=== PATIENT | female | born 1985 | race Caucasian/White ===

== ENCOUNTER 2019-02-08 15:56 | Outpatient (REF) | payer MEDICAID, SELFPAY ==
--- NOTE | 2019-02-08 15:00 | PAPFT_PTH ---
PATIENT: Mehul Fortune LOC: NCN #:[id number] AGE/SX: 33/F ROOM: RE02/08/[address]: Xenia Diaz : 1985 BED: DIS: 02/08/2019 SPEC #: [id number] RECD: 02/09/19 12:56 STATUS: CLYDE KINNEY #: [id number] MARTÍNEZ: 02/08/19 15:[address]: Xenia Diaz DEPT: [facility] Cytology RECD BY: Shalini Harris Tissues: 1 - CX/ENDOCX FOR PAP SMEARS Procedures: PAP THIN PREP/UVM Screening HPV DNA PROBE Comments: [id number] (CHLAMYDIA/GC)
[2019-02-08 22:02] LABS: Absolute Basophil Count 0.05 k/cumm (0.0-0.2); Absolute Eosinophil Count 0.12 k/cumm (0.0-0.7); Absolute Lymphocyte Count 1.86 k/cumm (1.2-3.4); Absolute Monocyte Count 0.28 k/cumm (0.11-0.7); Basophils % 0.8; Eosinophils % 1.9; HCT 40.5 % (36.0-46.0); HGB 13.8 g/dL (12.0-15.5); Lymphocytes % 29.5; Mean Corp. HGB Concentration 34.1 g/dL (32.0-36.0); Mean Corpuscular Hemoglobin 30.3 pg (27.0-33.0); Mean Corpuscular Volume 88.8 fL (80-95); Monocytes % 4.4; Neutrophils % 63.4; Platelet Count 319 x1000/uL (130-400); RBC 4.56 m/cumm (4.00-5.20); RBC Distribution Width 12.6 % (11.7-14.6); White Blood Cell Count 6.31 k/cumm (4.4-10.8)
[2019-02-08 22:35] LABS: Hemoglobin A1C 5.4 % (4.5-6.2)
[2019-02-08 22:55] LABS: ALT 29 U/L (14-59); AST 19 U/L (15-37); Albumin 3.8 g/dL (3.4-5.0); Alkaline Phosphatase 97 U/L (46-116); Anion Gap 11.7 mmol/L (3-11); BUN 9 mg/dL (7-18); Bilirubin, Total 0.3 mg/dL (0.2-1.0); CO2 23.3 mmol/L (21.0-32.0); CREATININE 0.88 mg/dL (0.55-1.02); Calcium 8.9 mg/dL (8.5-10.1); Calculated LDL 100 mg/dL; Chloride 105 mmol/L (98-107); Cholesterol 183 mg/dL (50-200); Glucose 95 mg/dL (70-100); HDL Cholesterol 30 mg/dL (40-60); Magnesium 1.8 mg/dL (1.8-2.4); Sodium 140 mmol/L (136-145); TSH (W/Ref FT4) 2.25 uIU/mL (0.36-3.74); Total Protein 6.9 g/dL (6.4-8.2); Triglyceride 267 mg/dL (30-150); Vitamin B12 598 pg/mL (193-986)
[2019-02-08 23:09] LABS: Iron 63 ug/dL (50-175); Total Iron Binding Capacity 290 ug/dL (250-450); Transferrin Sat 22 % (15-50)
[2019-02-10 10:18] LABS: Syphilis Serology (RPR) Negative (Negative)
[2019-02-10 11:26] LABS: HIV-1/2 Ag & Ab Screen Negative (NEGAT)
[2019-02-10 15:28] LABS: Chlamydia Result Negative; GC Result Negative; Specimen Description SEE COMMENTS
== END 2019-02-08 16:16 ==
LOC: NCHCN 15:56
PROVIDERS: PCP Nurse Practitioner Family; Visit Provider Nurse Practitioner Family
DX: R53.83 Other fatigue (principal); F41.9 Anxiety disorder, unspecified; R19.7 Diarrhea, unspecified; R51 Headache; K30 Functional dyspepsia; E66.9 Obesity, unspecified; Z12.4 Encounter for screening for malignant neoplasm of cervix; Z11.3 Encounter for screening for infections with a predominantly sexual mode of transmission; Z11.51 Encounter for screening for human papillomavirus (HPV); R06.83 Snoring
CPT/HCPCS: 80053; 80061; 87389; 87491; 87591; 88142; 82607; 83036; 83540; 83550; 83735; 84443; 85025; 86592; 87624

== ENCOUNTER 2019-07-05 13:37 | Emergency (ER) | payer MEDICAID, SELFPAY ==
[2019-07-05] VITALS (14 sets, daily range): BP systolic 101–115; BP diastolic 57–77; PULSE 53–68; RESP 14–22; TEMP 36.7–36.9; O2SAT 96–99
--- NOTE | 2019-07-05 13:58 | W.ED.GENAD ---
Discharge Plan Disposition Patient Disposition: HOME Condition: Stable Discharge Details Chief Complaint: Headache Clinical Impression: Headache, Post concussion syndrome, Anxiety Primary Care Provider: Xenia Diaz ED Provider: Jef Edmonds Home Meds and New Rx's Prescriptions: Continued meclizine 25 mg tablet 25 mg PO TID RF: 0 ondansetron HCl 4 mg tablet 4 mg PO ONCE PRNRF: 0 omeprazole 40 mg capsule,delayed release(DR/EC) 40 mg PO HS RF: 0 citalopram 40 mg tablet 40 mg PO HS RF: 0 hydroxyzine HCl 50 mg tablet 50 mg PO TID PRNRF: 0 loratadine [Claritin RediTabs] 10 mg tablet,disintegrating 10 mg PO HS RF: 0 fluticasone propionate [Allergy Relief (fluticasone)] 50 mcg/actuation spray,suspension 1 spray VICENTE DAILY RF: 0 gabapentin 300 mg capsule 300 mg PO TID RF: 0 Discharge Instructions Instructions: General Headache (ED) Additional Instructions: Please take ibuprofen over the counter. Take 600mg by mouth every 6 hours as needed for pain. Please contact your primary care physician to arrange follow-up. Return to the ER for any worsening or new concerning symptoms. Referrals: Xenia Diaz [Primary Care Provider] - Medical Decision Making 33-year-old female with recent concussion and postconcussive syndrome, seen by neurology last month, here with moderate headache and stuttering speech today with associated nausea and vomiting. Patient was given Zofran by EMS. Patient is neurologically intact. Stuttering still present and varying between part word repetition, 1 word repetition, prolonged sounds. Patient is afebrile with no nuchal rigidity. CT head was interpreted by radiology: IMPRESSION: No acute intracranial process. No vomiting here in the emergency family patient tolerating oral intake. Patient reassessed and has remained stable. She remains neurologically intact. Stutter is improved I suspect anxiety is contributing to her current presentation. Patient was given ibuprofen for headache. Plan will be for outpatient follow-up with her primary care physician. HPI General Date/Time Provider Initiated Documentation: 07/05/19 13:43. Related Data Home Medications Medication Instructions Recorded Confirmed citalopram 40 mg tablet 40 mg PO HS 02/15/19 07/05/19 fluticasone propionate 50 1 spray VICENTE DAILY 02/15/19 07/05/19 mcg/actuation nasal spray,suspension hydroxyzine HCl 50 mg tablet 50 mg PO TID PRN 02/15/19 07/05/19 loratadine 10 mg disintegrating 10 mg PO HS 02/15/19 07/05/19 tablet omeprazole 40 mg capsule,delayed 40 mg PO HS 02/15/19 07/05/19 release gabapentin 300 mg capsule 300 mg PO TID cap 05/18/19 07/05/19 meclizine 25 mg tablet 25 mg PO TID 05/18/19 07/05/19 ondansetron HCl 4 mg tablet 4 mg PO ONCE PRN tab 05/18/19 07/05/19 Allergies Allergy/AdvReac Type Severity Reaction Status Date / Time terbutaline Allergy Severe anaphylaxis Verified 07/05/19 13:56 Opioids - Morphine Analogues Allergy Intermediate nausea and Verified 07/05/19 13:56 vomitting latex Allergy Unknown unknown Verified 07/05/19 13:56 General Stated Complaint: Headache GONSALO: 2 ON LICENSE OF [facility] Medical History (Updated 07/05/19 @ 15:15 by Jef Edmonds MD) Anxiety (Inactive) Candidiasis of skin (Acute) Chronic diarrhea (Inactive) Chronic headaches (Inactive) Concussion (Acute) Dyspepsia (Acute) Fatigue (Inactive) Knee pain, left (Acute) Obesity (Inactive) Pain in left wrist (Acute) Post concussive syndrome (Acute) Sinusitis (Acute) Snoring (Inactive) Stress at home (Acute) Stress incontinence (Inactive) Surgical History H/O esophagogastroduodenoscopy (Chronic) at age 8 History of cholecystectomy (Chronic) S/P (Acute) Social History Smoking/Tobacco Use Status: Former Tobacco Use Alcohol Intake: former Drug use: Never Substance use type: does not use Household members: children Housing: house Number of Children: 5 What is your relationship status?: Panel score (0-1 are the most socially isolated patients): 0 Seatbelt use: always Do you feel safe at home: Yes Do you feel safe in your relationship?: Yes Exam Const General: cooperative and no acute distress HENMT Head: normocephalic and atraumatic Mouth: moist mucous membranes Eyes EOM: EOM intact bilaterally Neck Neck: trachea midline and supple Resp Auscultation: clear to auscultation bilaterally, no rales, no rhonchi and no wheezes Cardio Rate: regular rate and not tachycardic Rhythm: regular rhythm GI Palpation: soft, not firm, no guarding, no masses, not rigid and nontender Skin General skin exam: no rashes or lesions noted Neuro General: patient alert, patient awake, patient oriented x3 and tone normal Cranial Nerves: CN's II-XI intact bilaterally Cognition: normal cognition Speech: other (Stuttering speech which seems forced) Motor: muscle tone normal throughout and strength 5/5 throughout Sensory Exam: no sensory deficits noted Extrem General: no edema Psych Appearance: grossly normal Mental Status: mental status grossly normal Affect: anxious affect Course Vital Signs Vital signs: Vital Signs Temperature 36.7 C 07/05/19 13:41 Pulse 63 07/05/19 13:41 Respiratory Rate 19 07/05/19 13:41 Blood Pressure 115/62 07/05/19 13:41 Pulse Oximetry 97 07/05/19 13:41 Temperature 36.7 C 07/05/19 13:41 Temperature Source Oral 07/05/19 13:41 Pulse 63 07/05/19 13:41 Respiratory Rate 19 07/05/19 13:41 Respiratory Effort Non-Labored 07/05/19 13:50 Blood Pressure 115/62 07/05/19 13:41 Blood Pressure Position Supine 07/05/19 13:41 Pulse Oximetry 97 07/05/19 13:41 Oxygen Delivery Method Room Air 07/05/19 13:41 Oxygen Flow Rate 0 07/05/19 13:41 Pain Level 10 07/05/19 13:41
--- NOTE | 2019-07-05 14:30 | DI.CT_ITS ---
EXAM: CT HEAD WO CLINICAL HISTORY: headache, altered, stuttering speech. TECHNIQUE: Imaging Protocol: Axial computed tomography images with coronal and sagittal reformatted images were created and reviewed COMPARISON: No exams were available for comparison FINDINGS: Ventricles and Extra axial spaces: Normal in size and morphology for the patient's age. Hemorrhage: None. Cerebral parenchyma: Normal. Midline shift: None. Brainstem/Cerebellum: Normal. Calvarium: Normal. Visualized Paranasal sinuses/Mastoids: Clear. Soft Tissues: Unremarkable. IMPRESSION: No acute intracranial process. RADIATION DOSE DELIVERED: DATA REPOSITORY: All CT scans at this facility are submitted to the National Radiology Data Registry (NRDR) Dose Index Registry (DIR) with the [employer] ([employer]). RADIATION OPTIMIZATION: All CT scans at this facility use at least one of these dose optimization te chniques: automated exposure control; mA and/or kV adjustment per patient size (includes targeted exa ms where dose is matched to clinical indication); or iterative reconstruction.
[2019-07-05] MEDS: Ibuprofen 600 MG TAB PO (15:19)
== END 2019-07-05 16:01 | disposition home or self-care (01) ==
PROVIDERS: Emergency Provider Student in an Organized Health Care Education/Training Program; PCP Nurse Practitioner Family
DX: R51 Headache (principal); F07.81 Postconcussional syndrome; F41.9 Anxiety disorder, unspecified
CPT/HCPCS: 81025; 99284; 70450; 99283

== ENCOUNTER 2024-04-27 11:15 | Outpatient (REF) | payer MEDICAID, SELFPAY ==
[2024-04-27 16:18] LABS: ALT 26 U/L (14-59); AST 18 U/L (15-37); Albumin 4.1 g/dL (3.4-5.0); Alkaline Phosphatase 103 U/L (46-116); BUN 9 mg/dL (7-18); Calcium 9.2 mg/dL (8.5-10.1); Calculated LDL 88 mg/dL (<100); Chloride 105 mmol/L (98-107); Cholesterol 184 mg/dL (<200); Estimated GFR 73.95 (mL/min/1.73m2); Glucose 104 mg/dL (74-106); HDL Cholesterol 34 mg/dL (40-60); Magnesium 1.8 mg/dL (1.8-2.4); Potassium 4.7 mmol/L (3.5-5.1); Sodium 142 mmol/L (136-145); Total Protein 7.1 g/dL (6.4-8.2); Triglyceride 314 mg/dL (<150); Vitamin B12 144 pg/mL (193-986)
[2024-04-27 16:31] LABS: Hemoglobin A1C 5.2 % (<5.7)
[2024-04-27 23:19] LABS: HBs Antibody, Quant <3.1 mIU/mL (See Note); Hepatitis B Surface Ab Negative (See Note)
[2024-04-28 10:50] LABS: Measles IgG Antibody Positive (See Note); Mumps Antibody IgG Positive (See Note)
[2024-04-28 10:54] LABS: Rubella IgG Ab (UVM) Positive (See Note); Varicella IgG Antibody Positive (See Note)
== END 2024-04-27 11:16 | disposition home or self-care (01) ==
LOC: NCHCN 11:15
PROVIDERS: PCP Nurse Practitioner Family; Visit Provider Nurse Practitioner Family
DX: E66.9 Obesity, unspecified (principal); Z02.0 Encounter for examination for admission to educational institution
CPT/HCPCS: 80053; 80061; 86706; 86787; 82607; 83036; 83735; 86735; 86762; 86765